=== PATIENT | female | born 1945 | race Caucasian/White ===

== ENCOUNTER 2019-12-20 08:17 | Outpatient (CLI) | payer MEDICARE ==
--- NOTE | 2019-12-20 10:32 | BD ---
DEXA BONE DENSITY STUDY: Date: 12/20/2019 HISTORY: Postmenopausal. FINDINGS: Lumbar Spine: BMD (g/cm2) L1 0.711 T-Score: -2.5 L2 0.763 T-Score: -2.4 L3 0.730 T-Score: -3.2 L4 0.944 T-Score: -1.1 Total 0.797 T-Score: -2.3 Left Femoral Neck: 0.705 T-Score: -1.3 Total Femur: 0.749 T-Score: -1. IMPRESSION: 1. Osteopenia of the lumbar spine and left femoral neck. Of note, the lumbar spine values border on the osteoporosis range. 2. Ten year fracture risk for a major osteoporotic fracture is 9.8% and for a hip fracture is 1.7%. These fracture probabilities are calculated for an untreated patient. POS: [facility]UTH[facility]
== END 2019-12-20 08:18 | disposition home or self-care (01) ==
LOC: BICMAMMO 08:17
PROVIDERS: ATTEND Internal Medicine
DX: Z13.820 Encounter for screening for osteoporosis (principal); Z78.0 Asymptomatic menopausal state; M85.89 Other specified disorders of bone density and structure, multiple sites
CPT/HCPCS: 77080

== ENCOUNTER 2019-12-20 09:09 | Outpatient (CLI) | payer MEDICARE ==
--- NOTE | 2019-12-20 09:31 | ULT ---
EXAM: US Abdominal Aorta PROVIDED CLINICAL HISTORY: Screening for abdominal aortic aneurysm. COMPARISON: None FINDINGS: The proximal and mid abdominal aorta are completely obscured secondary to shadowing from bowel gas. T he distal infrarenal abdominal aorta is visualized and is normal in caliber measuring 1.2 cm x 1.1 cm. The most proximal bilateral common iliac arteries are normal in caliber. IMPRESSION: 1. Nonvisualization of the proximal and mid abdominal aorta due to shadowing from bowel gas. 2. Normal caliber distal infrarenal abdominal aorta.
== END 2019-12-20 09:10 | disposition home or self-care (01) ==
LOC: BICULT 09:09
PROVIDERS: ATTEND Internal Medicine
DX: Z00.00 Encounter for general adult medical examination without abnormal findings (principal); Z13.6 Encounter for screening for cardiovascular disorders
CPT/HCPCS: 76775

== ENCOUNTER 2020-07-09 20:17 | Emergency (ER) | payer OTHER, MEDICARE ==
[2020-07-09] MEDS ORDERED: Ketorolac Tromethamine 30 MG/ML VIAL ONE (20:39)
[2020-07-09] MEDS ORDERED: Morphine 4 MG/ML VIAL ONE (20:39)
[2020-07-09] MEDS ORDERED: Lidocaine 1% w/Epinephrine 1:100K 20 ML VIAL ONE (20:50)
[2020-07-09] MEDS ORDERED: Rabies Vaccine Human 2.5 UNITS VIAL IM ONE (21:00)
== END 2020-07-09 22:45 | disposition home or self-care (01) ==
LOC: ERS 20:17
DX: S62.305A Unspecified fracture of fourth metacarpal bone, left hand, initial encounter for closed fracture (principal); S41.152A Open bite of left upper arm, initial encounter; S81.851A Open bite, right lower leg, initial encounter; W54.0XXA Bitten by dog, initial encounter; J44.9 Chronic obstructive pulmonary disease, unspecified; I10 Essential (primary) hypertension
CPT/HCPCS: 12002; 90376; 90471; 90675; 96365; 96372; J0690; J1885; J2270

== ENCOUNTER 2020-07-11 17:37 | Emergency (ER) | payer OTHER, MEDICARE ==
[2020-07-11] MEDS ORDERED: Bacitracin 1 PK ONE (19:28)
== END 2020-07-11 20:08 | disposition home or self-care (01) ==
LOC: ERS 17:37
DX: S71.152D Open bite, left thigh, subsequent encounter (principal); S61.452D Open bite of left hand, subsequent encounter; S21.052D Open bite of left breast, subsequent encounter; J44.9 Chronic obstructive pulmonary disease, unspecified; I10 Essential (primary) hypertension; Z79.899 Other long term (current) drug therapy; W54.0XXD Bitten by dog, subsequent encounter
CPT/HCPCS: 99282

== ENCOUNTER 2021-12-14 08:45 | Outpatient (CLI) | payer MEDICARE | END 2021-12-14 08:46 | disposition home or self-care (01) | LOC: BICMAMMO 08:45 | PROVIDERS: ATTEND Internal Medicine | DX: N63.21 Unspecified lump in the left breast, upper outer quadrant (principal) | CPT/HCPCS: 76642; 77065; G0279 ==

== ENCOUNTER 2022-01-29 09:43 | Day surgery (SDC) | payer MEDICARE ==
[~2022-01-29 09:43] MED LIST: Zoledronic Acid/Mannitol&Water 5 MG in Premix Bag 1 BAG IVPB SCH
[2022-01-29 12:57] VITALS: BP 137/83; TEMP 97.6
== END 2022-01-29 12:59 | disposition home or self-care (01) ==
LOC: ONC/OP 09:43
PROVIDERS: ATTEND Internal Medicine
DX: M81.0 Age-related osteoporosis without current pathological fracture (principal)
CPT/HCPCS: 96365; J3489

== ENCOUNTER 2024-10-01 18:48 | Inpatient (IN) | payer MEDICARE ==
[2024-10-01] MEDS ORDERED: Ondansetron PF 4 MG/2 ML Vial IVP PRN (22:09)
[2024-10-01 22:38] LABS: #Basophils 0.04 10x3/uL (0.0-0.2); #Eosinophils 0.16 10x3/uL (0.0-0.7); #Monocytes 0.69 10x3/uL (0.11-0.59); #Neutrophils 4.75 10x3/uL (1.40-6.50); %Basophils 0.5 % (0.0-1.0); %Eosinophils 2.1 % (0.0-10.0); %Lymphocytes 24.5 % (21.0-51.0); %Monocytes 9.2 % (0.0-10.0); %Neutrophils 63.4 % (42.0-75.0); Hematocrit 27.3 % (36.0-47.0); Hemoglobin 8.9 g/dL (12.0-16.0); Mean Corpuscular Hemoglobin 30.5 pg (27.0-31.0); Mean Corpuscular Volume 93.5 fL (78.0-98.0); Platelet Count 159 10x3/uL (130-400); Red Blood Cell (RBC) Count 2.92 mill/uL (4.20-5.40); White Blood Cell (WBC) Count 7.50 10x3/uL (4.8-10.8)
[2024-10-01 22:51] LABS: Anion Gap 15 mmol/L (10-20); BUN (Urea Nitrogen) 38 mg/dL (9.8-20.1); Calc. Creatinine Clearance 16 mL/min (70-130); Calcium 9.4 mg/dL (7.8-10.44); Carbon Dioxide 22 mmol/L (23-31); Chloride 108 mmol/L (98-107); Glucose 146 mg/dL (83-110); Iron 47 ug/dL (50-170); Iron Binding Capacity, Total 269 mcg/dL (265-497); Potassium 3.2 mmol/L (3.5-5.1); Sodium 142 mmol/L (136-145)
[2024-10-01 23:35] LABS: Ferritin 127.28 ng/mL (10-291); Thyroid Stimulating Hormone 3.0979 uIU/mL (0.35-4.94); Vitamin B12 Greater than 2000 pg/mL (211-911)
[2024-10-02 00:26] LABS: Bacteria/HPF None Seen HPF (None Seen); CAUTI Indications for Culture Alt mental st,lethar; Glucose, Urine (Dipstick) 150 mg/dL (Negative); Leukocyte 25 Leu/uL (Negative); Protein, Urine (Dipstick) 20 mg/dL (Neg-Trace); RBC/HPF 0-3 HPF (0-3); Specific Gravity, Urine 1.012 (1.002-1.036)
[2024-10-02 00:30] LABS: Urine Culture Reflex No No
[2024-10-02 10:48] LABS: #Basophils 0.04 10x3/uL (0.0-0.2); #Eosinophils 0.09 10x3/uL (0.0-0.7); #Monocytes 0.62 10x3/uL (0.11-0.59); #Neutrophils 3.31 10x3/uL (1.40-6.50); %Basophils 0.8 % (0.0-1.0); %Eosinophils 1.7 % (0.0-10.0); %Lymphocytes 22.5 % (21.0-51.0); %Monocytes 11.8 % (0.0-10.0); %Neutrophils 63.0 % (42.0-75.0); Hematocrit 25.5 % (36.0-47.0); Hemoglobin 8.6 g/dL (12.0-16.0); Mean Corpuscular Hemoglobin 31.0 pg (27.0-31.0); Mean Corpuscular Volume 92.1 fL (78.0-98.0); Platelet Count 145 10x3/uL (130-400); Red Blood Cell (RBC) Count 2.77 mill/uL (4.20-5.40); White Blood Cell (WBC) Count 5.25 10x3/uL (4.8-10.8)
[2024-10-02 11:00] LABS: Anion Gap 11 mmol/L (10-20); BUN (Urea Nitrogen) 29 mg/dL (9.8-20.1); Calc. Creatinine Clearance 21 mL/min (70-130); Calcium 9.1 mg/dL (7.8-10.44); Carbon Dioxide 21 mmol/L (23-31); Chloride 109 mmol/L (98-107); Glucose 135 mg/dL (83-110); Potassium 2.9 mmol/L (3.5-5.1); Sodium 138 mmol/L (136-145)
[2024-10-02] MEDS ORDERED: hydrALAZINE 20 MG/ML VIAL SLOW IVP PRN (12:42)
[2024-10-02] MEDS: hydrALAZINE 20 MG/ML VIAL SLOW IVP PRN (13:24)
[2024-10-02] MEDS: Losartan 25 MG TAB PO SCH (13:49)
[2024-10-02] MEDS: Acetaminophen 325 MG TAB PO PRN (14:47)
[2024-10-02] MEDS ORDERED: NIFEdipine XL 30 MG ER.TAB PO SCH ×2 (15:45→21:00)
[2024-10-02] MEDS ORDERED: Ondansetron PF 4 MG/2 ML Vial IVP PRN (15:55)
[2024-10-02] MEDS ORDERED: niCARdipine 25 MG in Sodium Chloride 0.9% 250 ML 250 ML IVPB SCH (16:00)
[2024-10-02] MEDS: Ondansetron PF 4 MG/2 ML Vial IVP SCH (16:25)
[2024-10-02] MEDS: Ipratropium Bromide 0.06% Nasal Inhaler 15ml EA NARE SCH (16:55)
[2024-10-02] MEDS ORDERED: Carvedilol 6.25 MG TAB PO SCH (17:00)
[2024-10-02] MEDS: NIFEdipine XL 30 MG ER.TAB PO SCH (18:14)
[2024-10-02] MEDS: metFORMIN 500 MG TAB PO SCH (20:38)
[2024-10-02] MEDS: Gabapentin 300 MG CAP PO SCH (20:39)
[2024-10-03 05:40] LABS: #Basophils 0.05 10x3/uL (0.0-0.2); #Eosinophils 0.09 10x3/uL (0.0-0.7); #Monocytes 0.86 10x3/uL (0.11-0.59); #Neutrophils 4.25 10x3/uL (1.40-6.50); %Basophils 0.7 % (0.0-1.0); %Eosinophils 1.3 % (0.0-10.0); %Lymphocytes 23.7 % (21.0-51.0); %Monocytes 12.5 % (0.0-10.0); %Neutrophils 61.7 % (42.0-75.0); Hematocrit 25.8 % (36.0-47.0); Hemoglobin 8.6 g/dL (12.0-16.0); Mean Corpuscular Hemoglobin 30.6 pg (27.0-31.0); Mean Corpuscular Volume 91.8 fL (78.0-98.0); Platelet Count 152 10x3/uL (130-400); Red Blood Cell (RBC) Count 2.81 mill/uL (4.20-5.40); White Blood Cell (WBC) Count 6.89 10x3/uL (4.8-10.8)
[2024-10-03 05:56] LABS: Anion Gap 12 mmol/L (10-20); BUN (Urea Nitrogen) 23 mg/dL (9.8-20.1); Calc. Creatinine Clearance 26 mL/min (70-130); Calcium 8.9 mg/dL (7.8-10.44); Carbon Dioxide 20 mmol/L (23-31); Chloride 111 mmol/L (98-107); Glucose 101 mg/dL (83-110); Magnesium 2.2 mg/dL (1.6-2.6); Potassium 3.4 mmol/L (3.5-5.1); Sodium 140 mmol/L (136-145)
[2024-10-03] MEDS: NIFEdipine XL 30 MG ER.TAB PO SCH (08:18)
[2024-10-03] MEDS: Rosuvastatin 20 MG TAB PO SCH (08:18)
[2024-10-03] MEDS: Citalopram 20 MG TAB PO SCH (08:19)
[2024-10-03 08:22] VITALS: TEMP 98.2
[2024-10-03 13:02] VITALS: BP 153/84
== END 2024-10-03 14:20 | disposition home or self-care (01) | DRG 683 ==
LOC: MSONC 20:34 → INTOOBSV 20:34 → OBSVTOIN 10-03 10:25
PROVIDERS: ADMIT Internal Medicine; ATTEND Hospitalist
DX: N17.9 Acute kidney failure, unspecified (principal); E87.20 Acidosis, unspecified; I16.0 Hypertensive urgency; N18.2 Chronic kidney disease, stage 2 (mild); D50.9 Iron deficiency anemia, unspecified; I12.9 Hypertensive chronic kidney disease with stage 1 through stage 4 chronic kidney disease, or unspecified chronic kidney disease; E11.22 Type 2 diabetes mellitus with diabetic chronic kidney disease; E78.5 Hyperlipidemia, unspecified; I25.10 Atherosclerotic heart disease of native coronary artery without angina pectoris; E87.6 Hypokalemia; D63.1 Anemia in chronic kidney disease
CPT/HCPCS: 36415; 70450; 80048; 80053; 81001; 82607; 82728; 83540; 83550; 83735; 84443; 85025; 85610; 85730; 86850; 86900; 86901; 93005; 96374; 96375; 96376; 99285; G0378; J0360; J2405; J7030